=== PATIENT | female | born 1990 | race Hispanic/Latino ===

== ENCOUNTER 2019-06-29 14:08 | Emergency (ER) | payer OTHER ==
[2019-06-29] MEDS ORDERED: IBUPROFEN 600 MG TABLET ONE (14:53)
== END 2019-06-29 15:01 | disposition home or self-care (01) ==
LOC: EDH 14:08
DX: S00.03XA Contusion of scalp, initial encounter (principal); Y04.0XXA Assault by unarmed brawl or fight, initial encounter; Y93.89 Activity, other specified; Y92.89 Other specified places as the place of occurrence of the external cause; Y99.8 Other external cause status

== ENCOUNTER 2022-04-14 08:19 | Emergency (ER) | payer BC ==
[~2022-04-14] VITALS: Ht 154.9 cm; Wt 106.6 kg
[2022-04-14] MEDS ORDERED: KETOROLAC 30MG VIAL (30MG/ML) IVP ONE (10:00)
[2022-04-14] MEDS ORDERED: PROCHLORPERAZINE EDISYLATE 5 MG/ML 2 ML VIAL IVP ONE (10:00)
[2022-04-14] MEDS ORDERED: PROCHLORPERAZINE 10MG/2ML INJ IV ONE (10:00)
[2022-04-14] MEDS ORDERED: DiphenhydrAMINE HCL 50 MG/ML VIAL IV ONE (10:00)
[2022-04-14] MEDS ORDERED: PROCHLORPERAZINE 10MG/2ML INJ ONE (10:01)
[2022-04-14] MEDS ORDERED: PROM25TA7 PO (12:02)
[2022-04-14] MEDS ORDERED: IBUP-2070 PO (12:02)
[2022-04-14 12:42] VITALS: BP 108/68
== END 2022-04-14 12:56 | disposition home or self-care (01) ==
LOC: EDH 08:19
DX: R51.9 Headache, unspecified (principal); F32.A Depression, unspecified; Z98.890 Other specified postprocedural states; Z20.822 Contact with and (suspected) exposure to COVID-19
CPT/HCPCS: 99284; 96374; 96375; 87635; 87804 ×2; 81025; C9803; J1200; J0780; J1885

== ENCOUNTER 2022-06-30 23:46 | Emergency (ER) | payer BC ==
[~2022-06-30] VITALS: Ht 154.9 cm; Wt 103.4 kg
[~2022-06-30 23:46] MED LIST: IBUP-2070 PO; PROM25TA7 PO
[2022-07-01] MEDS ORDERED: KETOROLAC 30MG VIAL (30MG/ML) IVP ONE (01:00)
[2022-07-01] MEDS ORDERED: CYCL-309 PO (01:00)
[2022-07-01] MEDS ORDERED: IBUP-1493 PO (01:00)
[2022-07-01] MEDS ORDERED: CYCLOBENZAPRINE HCL 10 MG TABLET PO ONE (01:00)
[2022-07-01 01:14] VITALS: BP 145/85
== END 2022-07-01 01:14 | disposition home or self-care (01) ==
LOC: EDH 23:46
DX: G44.209 Tension-type headache, unspecified, not intractable (principal); F41.9 Anxiety disorder, unspecified; F32.A Depression, unspecified; I10 Essential (primary) hypertension; Z98.890 Other specified postprocedural states; Z79.899 Other long term (current) drug therapy
CPT/HCPCS: 99284; 96374; J1885

== ENCOUNTER 2022-11-01 11:55 | Emergency (ER) | payer BC ==
[~2022-11-01] VITALS: Ht 154.9 cm; Wt 107.0 kg
[~2022-11-01 11:55] MED LIST changes: +CYCL-309 PO; +IBUP-1493 PO
[2022-11-01] MEDS ORDERED: KETOROLAC 30MG VIAL (30MG/ML) IM ONE (12:30)
[2022-11-01 12:37] LABS: APPEARANCE,URINE CLEAR (CLEAR); BILIRUBIN,URINE NEGATIVE (NEGATIVE); COLOR,URINE COLORLESS (YELLOW); GLUCOSE, URINE (UA) NEGATIVE (NEGATIVE); KETONES,URINE NEGATIVE (NEGATIVE); LEUKOCYTE ESTERASE ,URINE NEGATIVE Leu/uL (NEGATIVE); NITRATE,URINE NEGATIVE (NEGATIVE); OCCULT BLOOD,URINE NEGATIVE (NEGATIVE); PH,URINE 5.5 (5.0-8.0); PROTEIN,URINE NEGATIVE (NEGATIVE); UROBILINOGEN,URINE 0.2 mg/dL (0.2-1.0)
[2022-11-01 13:01] LABS: BASOPHILS % (AUTO) 0.3 % (0.0-5.0); HEMATOCRIT 39.1 % (36-48); LYMPHOCYTES % (AUTO) 27.8 % (21.0-51.0); MEAN CORPUSCULAR HGB CONC 32.2 g/dL (32.0-36.0); MEAN CORPUSCULAR VOLUME 83.9 fL (79-99); NEUTROPHILS % (AUTO) 63.5 % (40.0-77.0); PLATELET COUNT (AUTO) 271 K/uL (130-400); RED BLOOD CELL COUNT(AUTO) 4.66 MIL/uL (4.00-5.50); RED CELL DISTRIBUTION WIDTH 13.2 % (11.0-15.5); WHITE BLOOD COUNT (AUTO) 7.7 K/uL (4.8-10.8)
[2022-11-01 13:11] LABS: CREATININE 0.8 mg/dL (0.5-1.5); POTASSIUM 3.8 mmol/L (3.5-5.1)
[2022-11-01 13:16] LABS: ALBUMIN 3.6 g/dL (3.5-5.0); TOTAL PROTEIN, SERUM 7.5 g/dL (6.0-8.3)
[2022-11-01 13:45] VITALS: BP 124/80
== END 2022-11-01 14:49 | disposition home or self-care (01) ==
LOC: EDH 11:55
DX: R51.9 Headache, unspecified (principal); R07.9 Chest pain, unspecified; I10 Essential (primary) hypertension; F41.9 Anxiety disorder, unspecified; F32.A Depression, unspecified; Z79.899 Other long term (current) drug therapy; Z98.890 Other specified postprocedural states
CPT/HCPCS: 99284; 70450; 84484; 80053; 85025; 81003; 81025; 36415; 96372; 93005; J1885